=== PATIENT | female | born 1960 | race Caucasian/White ===

== ENCOUNTER 2020-03-08 20:57 | Emergency (ER) | payer OTHER, BC ==
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
[2020-03-08] MEDS ORDERED: Ibuprofen 600 MG Tab PO ONE (21:58)
[2020-03-08] MEDS ORDERED: Ondansetron 4 MG/2 ML SDV IVPUSH ONE (22:30)
--- NOTE | 2020-03-09 06:44 | CT ---
Head CT Technique: Multiple axial sections through the brain were obtained. Intravenous contrast was not utilized. Comparison: No prior intracranial imaging is available. Findings: Ventricles along with basal cisterns and sulci over the convexities are within normal limits for the patient's age. No abnormal parenchymal densities are seen. No evidence of intracranial hemorrhage. No midline shift or mass effect is seen. Visualized mastoid sinuses and paranasal sinuses show nothing acute. No acute calvarial abnormality is appreciated. Impression: 1. Nothing acute is appreciated on noncontrast head CT study. Diagnostic code #1 Agree with preliminary report issued by [facility] ([facility] preliminary report dictated on 03/08/20, 10:50 PM Central Daylight Time) Study was dictated in MDT
== END 2020-03-08 23:33 ==
LOC: JD.ED 20:57
DX: S06.0X9A Concussion with loss of consciousness of unspecified duration, initial encounter (principal); Z91.013 Allergy to seafood; V43.52XA Car driver injured in collision with other type car in traffic accident, initial encounter
CPT/HCPCS: 36415; 70450; 80053; 83735; 85025; 85610; 85730; 93005; 96374; 99285; A9270; J2405